=== PATIENT | female | born 1970 | race Two or more races ===

== ENCOUNTER 2019-09-17 05:28 | Day surgery (SDC) | payer OTHER ==
[2019-09-08 12:44] LABS: BASOPHILS # (AUTO) 0.2 X10'3 (0-0.2); BASOPHILS % (AUTO) 1.2 % (0-1); EOSINOPHILS # (AUTO) 0.2 X10'3 (0-0.9); EOSINOPHILS % (AUTO) 1.4 % (0-6); LYMPHOCYTES # (AUTO) 3.2 X10'3 (1.1-4.8); LYMPHOCYTES % (AUTO) 26.2 % (21-51); MEAN CORPUSCULAR HEMOGLOBIN 23.6 PG (27.0-31.0); MEAN CORPUSCULAR HGB CONC 31.4 g/dL (33.0-36.5); MEAN CORPUSCULAR VOLUME 75.2 FL (78-98); MEAN PLATELET VOLUME 9.9 FL (7.4-10.4); MONOCYTES # (AUTO) 0.5 X10'3 (0-0.9); NEUTROPHILS # (AUTO) 8.2 X10'3 (1.8-7.7); NEUTROPHILS % (AUTO) 67.2 % (42-75); PRE OP HEMATOCRIT 41.5 % (35.0-45.0); PRE OP PLATELET COUNT 266 X10'3 (140-440); RED BLOOD COUNT 5.52 X10'6 (4.20-5.60); RED CELL DISTRIBUTION WIDTH 16.1 % (11.5-14.5)
[2019-09-08 12:58] LABS: ALBUMIN 3.3 G/DL (3.4-5.0); ALBUMIN/GLOBULIN RATIO 0.8 (1.1-1.5); ALKALINE PHOSPHATASE 72 IU/L (46-116); BLOOD UREA NITROGEN 12 MG/DL (7-18); BUN/CREATININE RATIO 13.5 (6.6-38.0); CALCIUM 8.3 MG/DL (8.5-10.1); CHLORIDE 107 MMOL/L (99-107); CREATININE 0.89 MG/DL (0.40-0.90); PRE OP ALT 31 U/L (30-65); PRE OP ANION GAP 9 (8-16); PRE OP AST 21 U/L (10-37); PRE OP BILIRUB, TOTAL 0.4 MG/DL (0.0-1.0); PRE OP GLUCOSE 127 MG/DL (70-104); PRE OP POTASSIUM 3.7 MMOL/L (3.4-5.1); PRE OP SODIUM 141 MMOL/L (135-145); TOTAL CARBON DIOXIDE 24.8 MMOL/L (24-32); TOTAL PROTEIN 7.6 G/DL (6.4-8.2); eGFR 68 ML/MIN
[~2019-09-17] VITALS: Ht 167.6 cm; Wt 156.2 kg
[2019-09-17] VITALS (8 sets, daily range): BP systolic 134–156; BP diastolic 45–98
[~2019-09-17 05:28] MED LIST: ALBU6.7H9 INH; ATOR10TA70 PO; CHOL200012 PO; DULA0.75 SQ; FERR-39 PO; FLUT16SP11 BOTHNARES; GLIM4TAB7 PO; IBUP-1985 PO; LORA-660 PO; LOSA100T57 PO; LYSI500T11 PO; METF-438 PO; METO-395 PO; OMEP-50 PO; ringers solution, lacted 1,000 ML IV SCH
[2019-09-17] MEDS ORDERED: DOCUMENT DATE & TIME OF BETA-BLOCKER PO ONE (05:30)
[2019-09-17] MEDS ORDERED: famotidine 20mg tablet PO ONE (05:30)
[2019-09-17] MEDS ORDERED: ceFAZolin 2gm in dextrose, iso 50 ML IV ONE (05:30)
[2019-09-17] MEDS ORDERED: ceFAZolin/D5W- 1GM premix 50 ML IV ONE (05:30)
[2019-09-17] MEDS ORDERED: LIDOcaine 1% (10mg/ml) 2ml vial ONE (06:19)
[2019-09-17] MEDS ORDERED: ceFAZolin 1000mg inj ONE (07:02)
[2019-09-17] MEDS ORDERED: BUPIVAcaine/PF 2.5 mg/ml (0.25%) 30ml vial ONE (07:02)
[2019-09-17] MEDS ORDERED: midazolam 2 mg/2 ml injection ONE (07:10)
[2019-09-17] MEDS ORDERED: fentaNYL /PF 50mcg/ml 5ml ampule ONE (07:11)
[2019-09-17] MEDS ORDERED: propofol inj 20 ML IV ONE ×2 (07:13→07:14)
[2019-09-17] MEDS ORDERED: succinylcholine 20mg/ml inj IV ONE (07:14)
[2019-09-17] MEDS ORDERED: dexamethasone sod phosphate 4mg/ml inj. ONE (07:14)
[2019-09-17] MEDS ORDERED: ondansetron/PF 4mg/2ml inj ONE (07:15)
[2019-09-17] MEDS ORDERED: ROPIVAcaine 0.5% (5mg/ml) 30ml vial ONE ×2 (07:16→07:17)
[2019-09-17] MEDS ORDERED: ringers solution, lacted 1,000 ML IV SCH (07:21)
[2019-09-17] MEDS ORDERED: hydrALAZINE 20mg/ml inj. IV PRN (07:25)
[2019-09-17] MEDS ORDERED: ondansetron/PF 4mg/2ml inj IV PRN (07:25)
[2019-09-17] MEDS ORDERED: fentaNYL/PF 50MCG/1 ML 2ML syringe IV PRN (07:25)
[2019-09-17] MEDS ORDERED: labetalol 20mg/4ml (5mg/ml) syringe IV PRN (07:25)
[2019-09-17] MEDS ORDERED: HYDROmorphone inj. 0.5 MG/0.5 ML DISP.SYRIN IV PRN ×2 (07:25)
[2019-09-17] MEDS ORDERED: sevoflurane 250ml liquid IH ONE (07:35)
[2019-09-17] MEDS ORDERED: LIDOcaine 1%/PF 5ML 10 MG/ML VIAL ONE (07:35)
--- NOTE | 2019-09-17 08:46 | NUR ---
Received from OR via [place], accompanied by Anesthesiologist Nicolasa and report given by Anesthesiolgist. Mask to 10L and sats 93-94%, 20G to left hand IVF LR at 100cc/hr, right elbow/lower arm has split splint and plaster cast with HEIDY wrap. Fingers exposed, pink and cap refill less than 3 secs. Pt VS stable.
--- NOTE | 2019-09-17 09:20 | NUR ---
DG 183, relayed information to MD and patient.
[2019-09-17] MEDS: fentaNYL/PF 50MCG/1 ML 2ML syringe IV PRN ×2 (09:23→09:32)
[2019-09-17] MEDS ORDERED: traMADol 50MG tablet PO ONE (09:40)
--- NOTE | 2019-09-17 10:06 | NUR ---
Pt discharged to vehicle by wheelchair without incident, in her own clothing and all other belongings checked and verified upon returning them to the patient, including cell phone. Rigth arm comfortably positioned in sling. Pt states her pain is 5/10 and tolerable. She does not want to receive any more pain medication at this time. Pt has had no nausea, stable VS and stable for DC. She has pain medications at the pharmacy being filled from MD office. Sister received patient to vehicle. Verbalized understanding of all DC isntructions. Fingers remain pink and good cap refil. Dressing remains CDI.
== END 2019-09-17 10:06 | disposition home or self-care (01) ==
LOC: PAS 05:28
PROVIDERS: ATTEND Orthopaedic Surgery
DX: M77.11 Lateral epicondylitis, right elbow (principal); J45.909 Unspecified asthma, uncomplicated; G47.30 Sleep apnea, unspecified; E11.9 Type 2 diabetes mellitus without complications; I10 Essential (primary) hypertension; K21.9 Gastro-esophageal reflux disease without esophagitis; G89.18 Other acute postprocedural pain; E66.01 Morbid (severe) obesity due to excess calories; Z68.43 Body mass index [BMI] 50.0-59.9, adult; Z88.5 Allergy status to narcotic agent; Z91.040 Latex allergy status; Z79.899 Other long term (current) drug therapy; Z90.49 Acquired absence of other specified parts of digestive tract; Z98.890 Other specified postprocedural states; Z11.59 Encounter for screening for other viral diseases
CPT/HCPCS: 24358; 36415; 64415; 80053; 82948; 85025; 93005; C9803; J0330; J0690; J1100; J2001; J2250; J2405; J2704; J3010; J3490; J7120; U0003; 87635; A4215; A4618; A6449; A7000; J2795